=== PATIENT | male | born 1955 | race Caucasian/White ===

== ENCOUNTER 2018-10-14 23:21 | Inpatient (IN) | payer MEDICARE, OTHER ==
[~2018-10-14] VITALS: Ht 190.5 cm; Wt 142.9 kg
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
--- NOTE | 2018-10-14 23:39 | NUR ---
called MHU for bed. 138B
[2018-10-14] MEDS ORDERED: LISI40TA4 PO (23:47)
[2018-10-14] MEDS ORDERED: LIDO30CR TP (23:47)
[2018-10-14] MEDS ORDERED: DULO30CA2 PO (23:47)
[2018-10-14] MEDS ORDERED: CLOP75TA33 PO (23:47)
[2018-10-14] MEDS ORDERED: ATOR40TA PO (23:47)
[2018-10-14] MEDS ORDERED: PANT40TA4 PO (23:47)
[2018-10-14] MEDS ORDERED: FURO40TA5 PO (23:47)
[2018-10-14] MEDS ORDERED: LORAZEPAM 2 MG/1 ML VIAL ONE (23:55)
[2018-10-14] MEDS ORDERED: HALOPERIDOL LACTATE 5 MG/1 ML VIAL ONE (23:55)
[2018-10-15] MEDS ORDERED: LORAZEPAM 2 MG/1 ML VIAL IM ONE
[2018-10-15] MEDS ORDERED: HALOPERIDOL LACTATE 5 MG/1 ML VIAL IM ONE
--- NOTE | 2018-10-15 | NUR ---
Patient kept yelling, and was showing signs of ingcreased agression. ERMD made aware.
--- NOTE | 2018-10-15 00:10 | NUR ---
Was able to redirect patient and patient states that he will cooperate with staff to get blood drawn, and cxr taken. Haldol and Ativan not needed, so medication was disposed with witness.
[2018-10-15 00:11] LABS: BASOPHILS # (AUTO) 0.1 K/uL (0.0-8.0); BASOPHILS % (AUTO) 1.2 % (0.0-2.0); EOSINOPHILS # (AUTO) 0.2 K/uL (0.0-0.7); EOSINOPHILS % (AUTO) 2.5 % (0.0-7.0); HEMOGLOBIN 14.1 g/dL (12.5-16.3); LYMPHOCYTES # (AUTO) 1.5 K/uL (20.0-40.0); LYMPHOCYTES % (AUTO) 16.2 % (20.5-51.5); MEAN CORPUSCULAR HEMOGLOBIN 27.6 uug (23.8-33.4); MEAN CORPUSCULAR HGB CONC 33 g/dL (32.5-36.3); MEAN CORPUSCULAR VOLUME 84.3 fL (73.0-96.2); MONOCYTES # (AUTO) 1.1 K/uL (2.0-10.0); MONOCYTES % (AUTO) 12.2 % (0.0-11.0); NEUTROPHILS # (AUTO) 6.2 K/uL (1.8-8.9); NEUTROPHILS % (AUTO) 67.9 % (38.5-71.5); PLATELET COUNT (AUTO) 256 K/uL (152-348); RED BLOOD CELL COUNT(AUTO) 5.11 MIL/uL (4.06-5.63); WHITE BLOOD COUNT (AUTO) 9.2 K/uL (3.6-10.2)
[2018-10-15 00:21] LABS: CARBON DIOXIDE 29 mmol/L (21-32); CHLORIDE 104 mmol/L (98-107); GLUCOSE 119 mg/dL (74-106); POTASSIUM 4.2 mmol/L (3.5-5.1); UREA NITROGEN, BLOOD 14 mg/dL (7-18)
[2018-10-15 00:31] LABS: ETHANOL < 3 MG/DL (0-0)
[2018-10-15 00:34] LABS: ALANINE AMINOTRANSFERASE 49 U/L (16-63); ALKALINE PHOSPHATASE 85 U/L (50-136); ASPARTATE AMINOTRANSFERASE 30 U/L (15-37); BILIRUBIN,DIRECT 0.1 mg/dL (0.0-0.2); BILIRUBIN,TOTAL 0.4 mg/dL (0.2-1.0); TOTAL PROTEIN, SERUM 7.5 g/dL (6.4-8.2)
[2018-10-15 00:36] LABS: ACETAMINOPHEN < 2.0 ug/mL (10-30)
--- NOTE | 2018-10-15 01:26 | NUR ---
Patient tranferred to MHU in stable condition.
[2018-10-15 01:30] VITALS: BP 145/82
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
[2018-10-15] MEDS ORDERED: MAG HYDROX/AL HYDROX/SIMETH 30 ML LIQUID UDC PO PRN (02:00)
[2018-10-15] MEDS ORDERED: BLOOD SUGAR DIAGNOSTIC 1 EACH STRIP VI ONE (02:00)
[2018-10-15] MEDS ORDERED: MAGNESIUM HYDROXIDE 30 ML LIQUID UDC PO PRN (02:00)
[2018-10-15] MEDS ORDERED: ACETAMINOPHEN 325 MG TABLET PO PRN (02:15)
[2018-10-15 07:35] LABS: *BILIRUBIN,URIN NEGATIVE (NEGATIVE); *BLOOD, URINE NEGATIVE (NEGATIVE); *CLARITY,URINE CLEAR (CLEAR); *COLOR,URINE DARK YELLOW (YELLOW); *KETONES,URINE TRACE (NEGATIVE); *UROBILINOGEN,URINE 0.2 E.U./dl (NORMAL); LEUKOCYTE ESTERASE ,URINE NEGATIVE (NEGATIVE); NITRITE, URINE NEGATIVE (NEGATIVE); PH,URINE 5.5 (5.0-8.0); UGLUCOSE NEGATIVE (NEGATIVE)
[2018-10-15 07:42] LABS: *AMPHETAMINE, URINE NEGATIVE (NEGATIVE); *BARBITURATE, URINE NEGATIVE (NEGATIVE); *CANNABINOID, URINE POSITIVE (NEGATIVE); *COCCAINE, URINE NEGATIVE (NEGATIVE); *OPIATE, URINE NEGATIVE (NEGATIVE); *PHENCYCLIDINE SCREEN,URINE NEGATIVE (NEGATIVE)
[2018-10-15 07:45] VITALS: BP 144/83
[2018-10-15 07:51] LABS: BACTERIA,URINE NONE SEEN /HPF (NONE SEEN); MUCUS,URINE FEW /LPF (0-FEW); RBC,URINE 0-3 /HPF (0-3); SQUAMOUS EPITHELIAL CELL,UR FEW /HPF (NONE SEEN); WBC,URINE 0-3 /HPF (0-3)
[2018-10-15] MEDS: LISINOPRIL 20 MG TABLET PO SCH (08:18)
[2018-10-15] MEDS: PANTOPRAZOLE SODIUM 40 MG TABLET.DR PO SCH (08:18)
[2018-10-15] MEDS: FUROSEMIDE 40 MG TABLET PO SCH (08:19)
[2018-10-15] MEDS: CLOPIDOGREL 75 MG TABLET PO SCH (09:37)
[2018-10-15 16:00] VITALS: BP 147/81
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
[2018-10-15] MEDS: ATORVASTATIN 40 MG TABLET PO SCH (18:07)
[2018-10-15] MEDS: risperiDONE 1 MG TABLET PO SCH (21:05)
[2018-10-15] MEDS: DIVALPROEX 250 MG TABLET.DR PO SCH (21:05)
--- NOTE | 2018-10-16 06:00 | NUR ---
GPS. Patient was compliant with the medication regimen. Slept 7 hours, no PRN meds given. . No SI or hallucinations reported or noted. No aggressive behavior noted during the shift. Will continue POC and monitoring for safety. Patient refused shower in the morning.
[2018-10-16 07:57] VITALS: BP 125/68
[2018-10-16] MEDS: DIVALPROEX 250 MG TABLET.DR PO SCH ×4 (08:42→19:00)
[2018-10-16] MEDS: FUROSEMIDE 40 MG TABLET PO SCH (08:42)
[2018-10-16] MEDS: LISINOPRIL 20 MG TABLET PO SCH (08:42)
[2018-10-16] MEDS: CLOPIDOGREL 75 MG TABLET PO SCH (08:42)
[2018-10-16] MEDS: risperiDONE 1 MG TABLET PO SCH (08:43)
[2018-10-16] MEDS: LORAZEPAM 1 MG TABLET PO PRN (08:43)
[2018-10-16] MEDS: PANTOPRAZOLE SODIUM 40 MG TABLET.DR PO SCH (08:43)
--- NOTE | 2018-10-16 08:44 | NUR ---
PT NOTED TO BE HIGHLY AGITATED AT THIS TIME. REFUSING MEDICATIONS, CHEEKING MEDICATIONS, AND SPITTING THEM OUT. QUITE UNCOOPERATIVE AT THIS TIME. PT MAKING INAPPROPRIATE RACIALLY CHARGED REMARKS SUCH "I'M NOT TAKING MEDICATIONS FROM THIS FAT FUCKING SOMALI." REDIRECTED NEEDED.
--- NOTE | 2018-10-16 08:45 | NUR ---
GPS: Nursing Notes: Spitting Medications: Patient cheeking his medications, then spitting them on his hand and to the floor, stated, "I took thern..", when confronted that he spitting his medications, stated, "I did not take them because a fat [place] Citizen gave them to me..", loud and angry affect, continue to monitor for safety, continue with treatment plan.
[2018-10-16] MEDS ORDERED: OLANZAPINE 10 MG VIAL IM ONE (09:00)
[2018-10-16] MEDS ORDERED: DULOXETINE 30 MG CAPSULE.DR PO SCH (09:00)
--- NOTE | 2018-10-16 09:17 | NUR ---
GPS: Nursing Notes: Chemical Restraint: Patient awake and responding to his name, labile, unpredictable behavior, verbal abusive toward staff, using racial statements toward staff, posturing toward staff on his w/c, spitting out his PO medications this AM, overly disruptive by constantly shouting in the dinning room, unable to be redirected, restless behavior, Dr. Jones covering for Dr. Williamson ordered: Zyprexa 10mg IM x1 STAT, R=18, continue to monitor for safety, continue with treatment plan.
--- NOTE | 2018-10-16 09:47 | NUR ---
GPS: Nursing Notes: Reassessment of Chemical Restraint: Patient is awake and responding to his name, following staff directions at times, patient is calmed and quiet, medication IM stat was effective, R=18, continue to monitor for safety, continue with treatment plan.
[2018-10-16] MEDS: ATORVASTATIN 40 MG TABLET PO SCH (17:04)
[2018-10-17] MEDS: ALBUTEROL SULFATE 2.5 MG/3 ML NEBU NEB PRN (01:52)
[2018-10-17 07:30] VITALS: BP 147/90
[2018-10-17] MEDS: risperiDONE 1 MG TABLET PO SCH ×3 (08:00→16:27)
[2018-10-17] MEDS: DIVALPROEX 250 MG TABLET.DR PO SCH ×2 (08:52→16:27)
[2018-10-17] MEDS: FUROSEMIDE 40 MG TABLET PO SCH (08:52)
[2018-10-17] MEDS: CLOPIDOGREL 75 MG TABLET PO SCH (08:53)
[2018-10-17] MEDS: PANTOPRAZOLE SODIUM 40 MG TABLET.DR PO SCH (08:54)
[2018-10-17] MEDS: LISINOPRIL 20 MG TABLET PO SCH (08:54)
[2018-10-17] MEDS ORDERED: DIVALPROEX 250 MG TABLET.DR PO SCH (09:00)
[2018-10-17 16:09] VITALS: BP 123/77
[2018-10-17] MEDS: ATORVASTATIN 40 MG TABLET PO SCH (17:11)
--- NOTE | 2018-10-17 19:20 | NUR ---
RECEIVED PT WATCHING TELEVISION ON THE ACTIVITY ROOM. PT SHOWS NO SIGNS OF ACUTE DISTRESS. PT ON A WHEELCHAIR. SAFETY AND COMFORT PROVIDED. WILL CONTINUE TO MONITOR.
[2018-10-17 19:45] VITALS: BP 105/56
--- NOTE | 2018-10-18 07:02 | NUR ---
PT SLEPT 6.3 HOURS. PT IN NO ACUTE DISTRESS. PT HAD EPISODES OF YELLING AND CURSING WHILE HE WAS ON HIS BED. PT IN NO COMBATIVE BEHAVIOR. PT REFUSED TO TAKE A SHOWER AND CHANGE HIS GOWN. SAFETY AND COMFORT PROVIDED.WILL ENDORSE ACCORDINGLY TO INCOMING NURSE FOR CONTINUITY OF CARE.
[2018-10-18 07:30] VITALS: BP 157/67
[2018-10-18] MEDS: risperiDONE 1 MG TABLET PO SCH ×4 (08:00→17:54)
[2018-10-18] MEDS: FUROSEMIDE 40 MG TABLET PO SCH (08:44)
[2018-10-18] MEDS: LISINOPRIL 20 MG TABLET PO SCH (08:44)
[2018-10-18] MEDS: CLOPIDOGREL 75 MG TABLET PO SCH (08:44)
[2018-10-18] MEDS: DIVALPROEX 250 MG TABLET.DR PO SCH ×3 (08:44→17:55)
[2018-10-18] MEDS: PANTOPRAZOLE SODIUM 40 MG TABLET.DR PO SCH (08:45)
--- NOTE | 2018-10-18 16:07 | NUR ---
Discharge planning: Wound Care Coordinator discussed discharge planning with patient's sister - Jenna Stanford [[phone]]. Per Jenna, patient is being evicted from [facility] and will need placement at a locked facility. Wound Care Coordinator faxed referral packet to [facility] [[address] [place] [address]; ; ] and [facility] [[address] [place] [address]; ; ]. Wound Care Coordinator awaiting approval.
[2018-10-18 16:09] VITALS: BP 80/58
[2018-10-18] MEDS: ATORVASTATIN 40 MG TABLET PO SCH ×2 (17:22→17:56)
[2018-10-18] MEDS: LORAZEPAM 1 MG TABLET PO PRN (17:55)
[2018-10-18 20:28] VITALS: BP 152/70
--- NOTE | 2018-10-19 06:39 | NUR ---
PATIENT SLEPT FOR APPROX. 5.30 HRS THROUGH THE NIGHT. HE IS NOTED LESS IRRITABLE LESS DEMANDING. WILL CONTINUE TO MONITOR.
[2018-10-19 07:30] VITALS: BP 130/62
[2018-10-19] MEDS: LISINOPRIL 20 MG TABLET PO SCH (08:14)
[2018-10-19] MEDS: PANTOPRAZOLE SODIUM 40 MG TABLET.DR PO SCH (08:14)
[2018-10-19] MEDS: FUROSEMIDE 40 MG TABLET PO SCH (08:14)
[2018-10-19] MEDS: DIVALPROEX 250 MG TABLET.DR PO SCH (08:14)
[2018-10-19] MEDS: CLOPIDOGREL 75 MG TABLET PO SCH (08:14)
[2018-10-19] MEDS: risperiDONE 1 MG TABLET PO SCH ×3 (08:14→17:26)
--- NOTE | 2018-10-19 14:30 | NUR ---
GPS: Nursing Notes: Destructive Behavior to Others: Patient is awake and responding to his name, gets easily irritable when redirected, bullying his roommate, shouting "You look good in a coffin..", verbally abusing staff when setting limits, stating racial statements toward staff, redirected during shift, unkempt appearance, poor grooming, continue to monitor for safety, continue with treatment plan.
--- NOTE | 2018-10-19 14:48 | NUR ---
Discharge Planning: Per Finance AssociateAminata at [facility] [[phone]], patient's referral denied due to hx of aggressive behavior. Per Finance AssociateLea, at [facility] [ ], accepted. This is a secured facility as opposed to locked facility, which family had requested. Addendum: 10/29/18 at 1025 by KARAN ORANTES Per Finance AssociateLew, patient continues to be accepted at [facility] and they are ready to admit the patient today.
[2018-10-19 16:00] VITALS: BP 113/57
[2018-10-19] MEDS: ATORVASTATIN 40 MG TABLET PO SCH (17:26)
[2018-10-19] MEDS: DIVALPROEX 500 MG TABLET.DR PO SCH (17:26)
[2018-10-19 21:08] VITALS: BP 121/63
--- NOTE | 2018-10-20 06:08 | NUR ---
Patient had an uneventful night. No shouting or acting out of any kind noted. Patient slept 8hrs and is still sleeping at this time.
[2018-10-20] MEDS: risperiDONE 1 MG TABLET PO SCH ×3 (08:28→17:08)
[2018-10-20] MEDS: PANTOPRAZOLE SODIUM 40 MG TABLET.DR PO SCH (08:28)
[2018-10-20] MEDS: CLOPIDOGREL 75 MG TABLET PO SCH (08:28)
[2018-10-20] MEDS: DIVALPROEX 500 MG TABLET.DR PO SCH ×2 (08:28→17:08)
[2018-10-20] MEDS: FUROSEMIDE 40 MG TABLET PO SCH (08:28)
[2018-10-20] MEDS: LISINOPRIL 20 MG TABLET PO SCH (09:00)
--- NOTE | 2018-10-20 10:16 | NUR ---
patient refused v/s taking for 3 time this morning, patient on blood pressure medication lisinopril. Patient became angry uttered fowl language and threatened to hurt staff if somebody touch him.
[2018-10-20 16:00] VITALS: BP 101/64
[2018-10-20] MEDS: ATORVASTATIN 40 MG TABLET PO SCH (17:08)
[2018-10-20 22:00] VITALS: BP 105/69
--- NOTE | 2018-10-20 23:59 | NUR ---
PATIENT RECEIVED IN THE ACTIVITIES ROOM WATCHING T.V. NO AGGRESSIVE BEHAVIOR NOTED, IN NO APPARENT DISTRESS NOTED WILL CONTINUE TO MONITOR. PATIENT IS EASILY AGITATED, IRRITABLE, AND LABILE TOWARDS STAFF AND PATIENTS.BED IN LOWEST POSITION, BED LOCKED,AND BED ALARM ON WHILE IN BED.
[2018-10-21] MEDS: TEMAZEPAM 7.5 MG CAPSULE PO PRN ×2 (00:28→21:42)
[2018-10-21 07:30] VITALS: BP 132/108
[2018-10-21] MEDS: DIVALPROEX 500 MG TABLET.DR PO SCH ×2 (08:53→16:49)
[2018-10-21] MEDS: CLOPIDOGREL 75 MG TABLET PO SCH (08:54)
[2018-10-21] MEDS: risperiDONE 0.5 MG TABLET PO SCH ×2 (08:54→20:17)
[2018-10-21] MEDS: PANTOPRAZOLE SODIUM 40 MG TABLET.DR PO SCH (08:56)
[2018-10-21] MEDS: FUROSEMIDE 40 MG TABLET PO SCH (08:57)
[2018-10-21] MEDS: LISINOPRIL 20 MG TABLET PO SCH (08:57)
[2018-10-21 16:00] VITALS: BP 97/57
[2018-10-21] MEDS: ATORVASTATIN 40 MG TABLET PO SCH (17:00)
[2018-10-21 20:09] VITALS: BP 91/55
[2018-10-21 20:30] VITALS: BP 126/75
[2018-10-21] MEDS: ALBUTEROL SULFATE 2.5 MG/3 ML NEBU NEB PRN (23:19)
--- NOTE | 2018-10-22 06:22 | NUR ---
GPS: PT SLEPT 5.3 HOURS . RESTORIL 7.5 MG PO GIVEN FOR SLEEP. PATIENT C/O SOB AT MID NIGHT. HHN TX GIVEN VIA RT AND EFFECTIVE. PT HAD EPISODES OF YELLING AND CURSING WHILE HE WAS IN DAY ROOM WATCHING TV. PT IN NO COMBATIVE BEHAVIOR. SAFETY AND COMFORT PROVIDED. CONTINUE PLAN OF CARE.
[2018-10-22 07:30] VITALS: BP 137/86
[2018-10-22] MEDS: risperiDONE 0.5 MG TABLET PO SCH ×2 (08:59→20:22)
[2018-10-22] MEDS: PANTOPRAZOLE SODIUM 40 MG TABLET.DR PO SCH (09:00)
[2018-10-22] MEDS: LISINOPRIL 20 MG TABLET PO SCH (09:04)
[2018-10-22] MEDS: DIVALPROEX 500 MG TABLET.DR PO SCH ×2 (09:04→16:29)
[2018-10-22] MEDS: FUROSEMIDE 40 MG TABLET PO SCH (09:04)
[2018-10-22] MEDS: CLOPIDOGREL 75 MG TABLET PO SCH (09:04)
[2018-10-22 16:00] VITALS: BP 116/54
[2018-10-22] MEDS: ATORVASTATIN 40 MG TABLET PO SCH (16:36)
--- NOTE | 2018-10-22 17:38 | NUR ---
Gps/Marketing Manager Health Communications- Stayed on his chair most of the day, goes to his room to void, using urinal. Able to trasfer self ind. after set up. reminded to lock wheel chair before standing. Irritable but no yelling noted.Had been cooperative this pm, redirectable. Skin very dry dry, lower ext, dryeness, patches of some scabs, discolored.
--- NOTE | 2018-10-22 19:34 | NUR ---
Received patient awake, sitting up in wheelchair in the hallway, not in any form of distress. No complaints at the moment. Patient has been compliant with medication and care in the morning. Will continue to monitor.
[2018-10-22 20:55] VITALS: BP 122/64
[2018-10-22] MEDS: TEMAZEPAM 7.5 MG CAPSULE PO PRN (21:40)
[2018-10-23] MEDS: LORAZEPAM 1 MG TABLET PO PRN (00:08)
--- NOTE | 2018-10-23 00:30 | NUR ---
PATIENT WAS NOTED YELLING "NURSE, NURSE!!!" WHEN THIS TECHNICAL CLERK ARRIVED AT HIS BED, PATIENT STATED, "THERE IS BLOOD IN MY BED, I AM BLEEDING". HOWEVER. THERE WAS NO BLOOD FOUND ON PATIENT'S BED OR ON HIS BODY. PATIENT WAS REASSURED AND REDIRECTED. HE IS REASSURED FOR HIS SAFETY. WILL CONTINUE TO MONITOR.
--- NOTE | 2018-10-23 06:20 | NUR ---
Patient slept intermittently throughout the night, slept for a total of 5 hours. No complaints made. Compliant with medications. Attended all needs. Ensured safety and comfort.
[2018-10-23 07:30] VITALS: BP 143/74
[2018-10-23] MEDS: PANTOPRAZOLE SODIUM 40 MG TABLET.DR PO SCH (09:28)
[2018-10-23] MEDS: FUROSEMIDE 40 MG TABLET PO SCH (09:28)
[2018-10-23] MEDS: risperiDONE 0.5 MG TABLET PO SCH ×2 (09:28→20:47)
[2018-10-23] MEDS: LISINOPRIL 20 MG TABLET PO SCH (09:28)
[2018-10-23] MEDS: DIVALPROEX 500 MG TABLET.DR PO SCH ×2 (09:28→17:29)
[2018-10-23] MEDS: CLOPIDOGREL 75 MG TABLET PO SCH (09:28)
--- NOTE | 2018-10-23 13:16 | NUR ---
Gps/Musical Instruments Assembler- Offered ativan 1 mg po but patient knocked the pill out from the staff hand when trying to administer Patient observed trying to run [facility] w/ his wheel chair. Noted scab on lateral side of his right hand came off during the episode. Discouraged pt. from doing such, not to be aggressive with the staff.
[2018-10-23 16:00] VITALS: BP 122/77
[2018-10-23] MEDS: ATORVASTATIN 40 MG TABLET PO SCH (17:29)
--- NOTE | 2018-10-23 20:00 | NUR ---
RECEIVED PATIENT IN THE DAY ROOM WATCHING TV. HE IS NOTED A/O X 2 CALM AND PLEASANT UPON APPROACHED; HOWEVER, HE CONTINUE NEEDY, ATTENTION SEEKER, EASILY IRRITABLE AND LABILE BX. V/S STABLE AT THIS TIME. PATIENT IS REASSURED FOR HIS SAFETY. SAFETY AND FALL PRECAUTION IN PLACE. WILL CONTINUE TO MONITOR.
[2018-10-23 20:47] VITALS: BP 117/62
[2018-10-24] MEDS: TEMAZEPAM 7.5 MG CAPSULE PO PRN (00:20)
--- NOTE | 2018-10-24 06:43 | NUR ---
PATIENT SLEPT FOR APPROX 4HRS THROUGH THE NIGHT. HE CONTINUE LABILE, BUT REDIRECTABLE AND COMPLIANT WITH MEDICATION REGIMENT DIET AND PLAN OF CARE. NO AGGRESSIVE/COMBATIVE BX NOTED OR REPORTED DURING THE SHIFT.
[2018-10-24 07:30] VITALS: BP 124/88
[2018-10-24] MEDS: FUROSEMIDE 40 MG TABLET PO SCH ×2 (09:00→09:15)
[2018-10-24] MEDS: CLOPIDOGREL 75 MG TABLET PO SCH ×2 (09:00→09:15)
[2018-10-24] MEDS: LISINOPRIL 20 MG TABLET PO SCH ×2 (09:00→09:15)
[2018-10-24] MEDS: NICOTINE 14 MG/24HR PATCH TD SCH (09:00)
[2018-10-24] MEDS: DIVALPROEX 500 MG TABLET.DR PO SCH ×3 (09:00→17:00)
[2018-10-24] MEDS: PANTOPRAZOLE SODIUM 40 MG TABLET.DR PO SCH ×2 (09:00→09:15)
[2018-10-24] MEDS: risperiDONE 0.5 MG TABLET PO SCH ×2 (09:14→21:34)
--- NOTE | 2018-10-24 09:30 | NUR ---
Gps/Clother In- Refused to take routine am meds pretending he took them, then hides the med. cup. Instructed patient to give the med. cup full of am meds. if refusing to take routine am. meds. handed them nicely but calling staff names" you slinky eyes get out of my face now!!" Screams and yells intermittently when he wants to have the channel changed. Discouraged from doing so , unpredictable behavior, staff made aware , guarded for their safety.
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
[2018-10-24] MEDS ORDERED: diphenhydrAMINE 50 MG/1 ML VIAL IM SCH (11:00)
[2018-10-24] MEDS ORDERED: HALOPERIDOL LACTATE 5 MG/1 ML VIAL IM PRN (11:00)
[2018-10-24] MEDS ORDERED: LORAZEPAM 2 MG/1 ML VIAL IM ONE (11:00)
[2018-10-24 16:00] VITALS: BP 130/80
[2018-10-24] MEDS: ATORVASTATIN 40 MG TABLET PO SCH (18:00)
[2018-10-24 20:36] VITALS: BP 142/83
--- NOTE | 2018-10-24 20:49 | NUR ---
PATIENT RECEIVED IN THE ACTIVITIES ROOM WATCHING T.V. NO AGGRESSIVE BEHAVIOR NOTED, IN NO APPARENT DISTRESS NOTED WILL CONTINUE TO MONITOR. PATIENT IS EASILY AGITATED, IRRITABLE, AND LABILE TOWARDS STAFF AND PATIENTS.PATIENT IS UNPREDICTABLE WITH POOR IMPULSE CONTROL. BED IN LOWEST POSITION, BED LOCKED,AND BED ALARM ON WHILE IN BED.
[2018-10-25] MEDS: LISINOPRIL 20 MG TABLET PO SCH (09:00)
[2018-10-25] MEDS: PANTOPRAZOLE SODIUM 40 MG TABLET.DR PO SCH (09:00)
[2018-10-25] MEDS: NICOTINE 14 MG/24HR PATCH TD SCH (09:00)
[2018-10-25] MEDS: FUROSEMIDE 40 MG TABLET PO SCH (09:00)
[2018-10-25] MEDS: CLOPIDOGREL 75 MG TABLET PO SCH (09:00)
[2018-10-25] MEDS: DIVALPROEX 500 MG TABLET.DR PO SCH ×2 (09:00→17:02)
[2018-10-25] MEDS: risperiDONE 0.5 MG TABLET PO SCH ×2 (09:00→17:02)
[2018-10-25] MEDS: ALBUTEROL SULFATE 2.5 MG/3 ML NEBU NEB PRN (14:35)
[2018-10-25 15:48] VITALS: BP 128/65
[2018-10-25] MEDS: ATORVASTATIN 40 MG TABLET PO SCH (17:02)
[2018-10-25 20:28] VITALS: BP 137/85
[2018-10-25] MEDS: LORAZEPAM 1 MG TABLET PO PRN (20:51)
[2018-10-25] MEDS: TEMAZEPAM 7.5 MG CAPSULE PO PRN (22:29)
--- NOTE | 2018-10-25 23:00 | NUR ---
RECEIVED PATIENT IN THE DAY ROOM WATCHING TV. AFTER A WHILE HE WENT TO BED. HE HOWEVER CONTINUES TO BE NEEDY, ATTENTION SEEKING EASILY IRRITABLE AND LABILE. ALSO DISRUPTIVE BY YELLING OUT LOUDLY 'NURSE ,NURSE' SEVERAL TIMES OVER RIDICULOUS REQUEST SUCH 'HOLD MY URINAL',.WHEN REMINDED TO BE RESPECTFUL OF HIS ROOMMATE HE SAID' FUCK YOU'.HE WAS HOWEVER COMPLIANT WITH MEDS.WILL CONTINUE TO MONITOR.
[2018-10-26] MEDS: ALBUTEROL SULFATE 2.5 MG/3 ML NEBU NEB PRN (01:00)
--- NOTE | 2018-10-26 06:27 | NUR ---
SLEPT FOR APPROX.02;00HRS.KEPT GETTING INTO HIS CHAIR AND PACING THE HALLWAY WITH OCCASIONAL YELLING OUT "NURSE,NURSE; HAS HAD A SHOWER WITH GOOD GROOMING.
[2018-10-26 07:44] VITALS: BP 156/78
[2018-10-26] MEDS: NICOTINE 14 MG/24HR PATCH TD SCH (08:25)
[2018-10-26] MEDS: FUROSEMIDE 40 MG TABLET PO SCH (08:25)
[2018-10-26] MEDS: HALOPERIDOL 5 MG TABLET PO SCH ×3 (08:26→17:20)
[2018-10-26] MEDS: DIVALPROEX 500 MG TABLET.DR PO SCH ×2 (08:26→17:20)
[2018-10-26] MEDS: BENZTROPINE MESYLATE 1 MG TABLET PO SCH ×3 (08:26→17:20)
[2018-10-26] MEDS: PANTOPRAZOLE SODIUM 40 MG TABLET.DR PO SCH (08:26)
[2018-10-26] MEDS: CLOPIDOGREL 75 MG TABLET PO SCH (08:26)
[2018-10-26] MEDS: LISINOPRIL 20 MG TABLET PO SCH (08:27)
[2018-10-26] MEDS: DIVALPROEX 250 MG TABLET.DR PO SCH (12:34)
[2018-10-26 15:49] VITALS: BP 109/60
--- NOTE | 2018-10-26 15:56 | NUR ---
Patient care rendered to rn. Coffman. who will continue with care plan.
[2018-10-26] MEDS: ATORVASTATIN 40 MG TABLET PO SCH (17:20)
--- NOTE | 2018-10-26 19:16 | NUR ---
Received report for Augustus LEON.
[2018-10-26 20:00] VITALS: BP 157/64
[2018-10-27] MEDS: TEMAZEPAM 7.5 MG CAPSULE PO PRN (01:13)
--- NOTE | 2018-10-27 06:10 | NUR ---
Patient refused to go into room through out the night. patient remained in wheel chair either in the hallway/activity room. Patient is compliant with medications and medical treatments. patient showed no disrupted behavior towards staff and other tenants. Patient able to verbalize needs and needs were met. Patient has an increase appetite and requested snacks and sandwiches. Patient intake was monitored.Will continue to monitor and endorse plan of care to oncoming shift nurse.
[2018-10-27 07:30] VITALS: BP 121/40
[2018-10-27] MEDS: HALOPERIDOL 5 MG TABLET PO SCH ×2 (08:09→12:06)
[2018-10-27] MEDS: DIVALPROEX 500 MG TABLET.DR PO SCH ×2 (08:09→16:48)
[2018-10-27] MEDS: BENZTROPINE MESYLATE 1 MG TABLET PO SCH ×3 (08:09→16:48)
[2018-10-27] MEDS: CLOPIDOGREL 75 MG TABLET PO SCH (08:09)
[2018-10-27] MEDS: PANTOPRAZOLE SODIUM 40 MG TABLET.DR PO SCH (08:09)
[2018-10-27] MEDS: FUROSEMIDE 40 MG TABLET PO SCH (08:09)
[2018-10-27] MEDS: NICOTINE 14 MG/24HR PATCH TD SCH (08:10)
[2018-10-27] MEDS: LISINOPRIL 20 MG TABLET PO SCH (08:10)
[2018-10-27] MEDS ORDERED: HALOPERIDOL DECANOATE 50 MG/1 ML AMPUL IM ONE (09:00)
[2018-10-27] MEDS: DIVALPROEX 250 MG TABLET.DR PO SCH (12:06)
[2018-10-27 16:00] VITALS: BP 102/63
[2018-10-27] MEDS: HALOPERIDOL 2 MG TABLET PO SCH (16:48)
[2018-10-27] MEDS: ATORVASTATIN 40 MG TABLET PO SCH (17:01)
--- NOTE | 2018-10-27 19:26 | NUR ---
received report from KHANG Vázquez.
[2018-10-27 20:52] VITALS: BP 112/59
[2018-10-28 07:30] VITALS: BP 113/53
[2018-10-28] MEDS: LISINOPRIL 20 MG TABLET PO SCH (09:00)
[2018-10-28] MEDS: HALOPERIDOL 2 MG TABLET PO SCH ×3 (09:04→16:21)
[2018-10-28] MEDS: BENZTROPINE MESYLATE 1 MG TABLET PO SCH ×3 (09:04→16:21)
[2018-10-28] MEDS: DIVALPROEX 500 MG TABLET.DR PO SCH ×2 (09:04→16:21)
[2018-10-28] MEDS: PANTOPRAZOLE SODIUM 40 MG TABLET.DR PO SCH (09:04)
[2018-10-28] MEDS: NICOTINE 14 MG/24HR PATCH TD SCH (09:05)
[2018-10-28] MEDS: FUROSEMIDE 40 MG TABLET PO SCH (09:05)
[2018-10-28] MEDS: CLOPIDOGREL 75 MG TABLET PO SCH (09:05)
[2018-10-28] MEDS: DIVALPROEX 250 MG TABLET.DR PO SCH (12:45)
--- NOTE | 2018-10-28 15:06 | NUR ---
FIREARMS REPORT: Parachute Packer completed and submitted a [facility] firearms report for 5150 DTO certification. A copy of report has been placed in patient chart.
--- NOTE | 2018-10-28 15:34 | NUR ---
Discharge Planning: skip pit worker faxed referral inquiry to [facility] [[address], [place] [address]; ] ATTN: Rodrigo, Admissions [[phone]]. Awaiting response. Addendum: 10/29/18 at 1024 by KARAN ORANTES DC planning update: Per Rodrigo, Admissions at [facility], patient is denied acceptance to their facility at this time.
--- NOTE | 2018-10-28 16:18 | NUR ---
Discharge Planning: storage brine worker faxed referral inquiry to [facility] [Address: [address] [place] [address]; ] ATTN:Elizabeth/Anne-Marie. Meeting Facilitator awaiting response. Addendum: 10/29/18 at 1022 by KARAN ORANTES DC planning update: Per Elizabeth, Admissions at [facility], patient will not be accepted at facility at this time.
[2018-10-28] MEDS: ATORVASTATIN 40 MG TABLET PO SCH (17:00)
--- NOTE | 2018-10-28 19:50 | NUR ---
Received patient in the hallway, agitated, yells when he needs something. attention seeking. will continue to monitor for patient safety
[2018-10-28 20:00] VITALS: BP 121/60
[2018-10-29 07:30] VITALS: BP 159/86
[2018-10-29 08:46] VITALS: BP 159/86
[2018-10-29] MEDS: DIVALPROEX 500 MG TABLET.DR PO SCH ×2 (08:46→16:26)
[2018-10-29] MEDS: BENZTROPINE MESYLATE 1 MG TABLET PO SCH ×3 (08:46→16:26)
[2018-10-29] MEDS: HALOPERIDOL 2 MG TABLET PO SCH ×3 (08:46→16:26)
[2018-10-29] MEDS: FUROSEMIDE 40 MG TABLET PO SCH (08:46)
[2018-10-29] MEDS: LISINOPRIL 20 MG TABLET PO SCH (08:46)
[2018-10-29] MEDS: CLOPIDOGREL 75 MG TABLET PO SCH (08:46)
[2018-10-29] MEDS: PANTOPRAZOLE SODIUM 40 MG TABLET.DR PO SCH (08:46)
[2018-10-29] MEDS: NICOTINE 14 MG/24HR PATCH TD SCH (08:46)
--- NOTE | 2018-10-29 11:08 | NUR ---
Discharge Note: Patient will be discharged to [facility] [[address], [place]. [address]; ]. Last Dipper spoke with KASANDRA Haddad, who stated facility is ready to accept patient today. Please arrange ambulance for this patient by 4:00pm. Patient is aware and agreeable with discharge plan. Patient denies any suicidal Last Dipper spoke with patient�s sister Jenna Castañeda [[phone]] who is aware and agreeable with discharge plan. Patient will follow up with Dr. Gomez (Vice President Tax) and Dr. Hernandez (Psychiatrist) at [facility] Patient was given outpatient mental health resources to [facility] .
--- NOTE | 2018-10-29 12:33 | NUR ---
PT SUSTAINED AN APPARENT FALL IN HIS BEDROOM BATHROOM. STATED HE WAS TRYING TO GET FROM THE TOILET TO HIS WHEELCHAIR, AND LOST HIS BALANCE. NO APPARENT INJURIES. PT DENIES ANY PAIN OR DISCOMFORT. DENIES HITTING HIS HEAD. CURRENTLY LAYING ON RIGHT LATERAL SIDE. V/S STABLE. ABLE TO MAKE ALL NEEDS KNOWN. CALLED AND SPOKE TO Yaneth TRINH N.P WITH NO NEW ORDERS. CALLED AND SPOKE TO DR. ROSE, INSTRUCTED TO CONTINUE WITH DISCHARGE PLANS TODAY. CALLED AND LEFT MESSAGE TO HIS SISTER NANCY. IN NO ACUTE DISTRESS.
[2018-10-29] MEDS: DIVALPROEX 250 MG TABLET.DR PO SCH (13:03)
--- NOTE | 2018-10-29 13:17 | NUR ---
Pt's sister Jenna called back. Notified and informed of pt's fall.
--- NOTE | 2018-10-29 17:12 | NUR ---
Discharge orders in place. In no acute distress. VSS. Denies SI/HI. Pleasant when approached. Compliant with care and medications. Exit care provided and report given to receiving facility RN. Bilateral upper and lower extremity wound pictures taken for record. Patient became increasingly agitated and inappropriate in attempt to take picture of under abdomen fold. Awaiting ambulance pickup.
[2018-10-29] MEDS: ATORVASTATIN 40 MG TABLET PO SCH (17:54)
== END 2018-10-29 18:46 | DRG 885 ==
LOC: ER 23:25 → GPS 10-15 00:30
PROVIDERS: ADMIT Psychiatry & Neurology Psychiatry; ATTEND Nurse Practitioner Acute Care
DX: F31.64 Bipolar disorder, current episode mixed, severe, with psychotic features (principal); F03.91 Unspecified dementia, unspecified severity, with behavioral disturbance; I50.22 Chronic systolic (congestive) heart failure; E44.1 Mild protein-calorie malnutrition; M17.0 Bilateral primary osteoarthritis of knee; J44.9 Chronic obstructive pulmonary disease, unspecified; K21.9 Gastro-esophageal reflux disease without esophagitis; Z86.73 Personal history of transient ischemic attack (TIA), and cerebral infarction without residual deficits; Z87.820 Personal history of traumatic brain injury; E66.01 Morbid (severe) obesity due to excess calories; Z68.39 Body mass index [BMI] 39.0-39.9, adult; Z71.3 Dietary counseling and surveillance; E78.5 Hyperlipidemia, unspecified; Z79.02 Long term (current) use of antithrombotics/antiplatelets; K74.60 Unspecified cirrhosis of liver; Z86.19 Personal history of other infectious and parasitic diseases; R91.1 Solitary pulmonary nodule; F12.90 Cannabis use, unspecified, uncomplicated; E78.00 Pure hypercholesterolemia, unspecified
CPT/HCPCS: 36415; 71045; 71250; 80164; 80307; 85025; 93005; 94640; A4663; G0480; G0480-TC; J1200; J1630; J1631; J2060; J2358; J3490